=== PATIENT | female | born 1990 | race Caucasian/White ===

== ENCOUNTER 2022-10-20 19:19 | Emergency (ER) | payer BC ==
[~2022-10-20] VITALS: Ht 160 cm; Wt 63.5 kg
[2022-10-20 19:35] VITALS: BP 154/87
[2022-10-20] MEDS ORDERED: KETOROLAC TROMETHAMINE INJ 30 MG/ML VIAL ONE (19:57)
[2022-10-20] MEDS ORDERED: KETOROLAC TROMETHAMINE INJ 60 MG/2 ML VIAL IM ONE (20:00)
--- NOTE | 2022-10-20 20:09 | NUR ---
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
--- NOTE | 2022-10-21 00:01 | NUR ---
Patient discharged to home in stable condition. Written and verbal after care instructions given. Patient verbalizes understanding of instruction.
== END 2022-10-21 00:02 | disposition home or self-care (01) ==
LOC: ER 19:22
DX: M79.632 Pain in left forearm (principal); M79.651 Pain in right thigh; M79.652 Pain in left thigh; F31.9 Bipolar disorder, unspecified; Z88.8 Allergy status to other drugs, medicaments and biological substances; Z91.013 Allergy to seafood; Z60.2 Problems related to living alone
CPT/HCPCS: 99284; 96372; 73552 ×2; 73090; J1885

== ENCOUNTER 2023-12-22 05:12 | Emergency (ER) | payer BC ==
[~2023-12-22] VITALS: Ht 160 cm; Wt 68.0 kg
[2023-12-22] MEDS ORDERED: HYDROCODONE/APAP 5/325MG TABLET ONE (07:06)
[2023-12-22] MEDS: HYDROCODONE/APAP 5/325MG TABLET PO ONE (07:07)
[2023-12-22] MEDS ORDERED: HYDR-4303 PO (07:38)
[2023-12-22] MEDS ORDERED: IBUP-1955 PO (07:38)
[2023-12-22 09:41] VITALS: BP 129/83; TEMP 98.7; O2SAT 95
== END 2023-12-22 09:43 | disposition home or self-care (01) ==
LOC: ER 05:16
DX: S52.501A Unspecified fracture of the lower end of right radius, initial encounter for closed fracture (principal); F31.9 Bipolar disorder, unspecified; Z88.0 Allergy status to penicillin; Z91.013 Allergy to seafood; Z88.8 Allergy status to other drugs, medicaments and biological substances; Z60.2 Problems related to living alone; W18.30XA Fall on same level, unspecified, initial encounter; Y93.89 Activity, other specified; Y92.89 Other specified places as the place of occurrence of the external cause; Y99.8 Other external cause status
CPT/HCPCS: 73110

== ENCOUNTER 2024-02-01 19:11 | Emergency (ER) | payer BC ==
[~2024-02-01] VITALS: Ht 165.1 cm; Wt 72.6 kg
[~2024-02-01 19:11] MED LIST: HYDR-4303 PO; IBUP-1955 PO
[2024-02-01] MEDS ORDERED: oxyCODONE/APAP (5/325 MG) 1 UDTAB TABLET ONE (20:46)
[2024-02-01] MEDS: oxyCODONE/APAP (5/325 MG) 1 UDTAB TABLET PO ONE (20:47)
[2024-02-01] MEDS ORDERED: OXYC-128 PO (22:35)
[2024-02-01] MEDS ORDERED: DOCU-141 PO (22:35)
[2024-02-01 23:17] VITALS: BP 132/78; TEMP 98; O2SAT 96
== END 2024-02-01 23:51 | disposition home or self-care (01) ==
LOC: ER 19:11
DX: S52.571A Other intraarticular fracture of lower end of right radius, initial encounter for closed fracture (principal); F31.9 Bipolar disorder, unspecified; Z88.0 Allergy status to penicillin; Z88.8 Allergy status to other drugs, medicaments and biological substances; Z91.013 Allergy to seafood; Z60.2 Problems related to living alone; W18.30XA Fall on same level, unspecified, initial encounter; Y93.89 Activity, other specified; Y92.89 Other specified places as the place of occurrence of the external cause; Y99.8 Other external cause status
CPT/HCPCS: 73110

== ENCOUNTER 2024-05-05 08:35 | Emergency (ER) | payer BC ==
[~2024-05-05] VITALS: Ht 162.6 cm; Wt 72.6 kg
[~2024-05-05 08:35] MED LIST changes: +DOCU-141 PO; +OXYC-128 PO
[2024-05-05 08:56] VITALS: BP 139/62; TEMP 100.3
[2024-05-05] MEDS ORDERED: KETOROLAC TROMETHAMINE 15 MG/ML VIAL ONE ×3 (09:10→09:14)
[2024-05-05] MEDS: KETOROLAC TROMETHAMINE 15 MG/ML VIAL IV ONE (09:13)
[2024-05-05] MEDS: IV NS 0.9% 1,000 ML BAG IV ONE (09:13)
[2024-05-05] MEDS ORDERED: AZIT250T13 PO (09:46)
[2024-05-05 10:23] VITALS: O2SAT 98
== END 2024-05-05 10:23 | disposition home or self-care (01) ==
LOC: ER 08:38
DX: R50.9 Fever, unspecified (principal); M79.10 Myalgia, unspecified site; J02.9 Acute pharyngitis, unspecified; J06.9 Acute upper respiratory infection, unspecified; R19.7 Diarrhea, unspecified; F31.9 Bipolar disorder, unspecified; Z98.890 Other specified postprocedural states; Z79.1 Long term (current) use of non-steroidal anti-inflammatories (NSAID); Z20.822 Contact with and (suspected) exposure to COVID-19; Z79.899 Other long term (current) drug therapy; Z60.2 Problems related to living alone; Z88.1 Allergy status to other antibiotic agents; Z91.040 Latex allergy status
CPT/HCPCS: 99283; 96374; 96361; 87426; 87804 ×2; J7030 ×2; J1885 ×2

== ENCOUNTER 2025-02-02 08:31 | Emergency (ER) | payer SELFPAY ==
[~2025-02-02] VITALS: Ht 162.6 cm; Wt 79.4 kg
[~2025-02-02 08:31] MED LIST changes: +AZIT250T13 PO
[2025-02-02] MEDS ORDERED: NAPR-1009 PO (09:27)
[2025-02-02 09:45] VITALS: BP 125/72; TEMP 98.3; O2SAT 98
== END 2025-02-02 09:46 | disposition home or self-care (01) ==
LOC: ER 08:36
DX: S63.501A Unspecified sprain of right wrist, initial encounter (principal); S09.93XA Unspecified injury of face, initial encounter; R68.84 Jaw pain; L27.0 Generalized skin eruption due to drugs and medicaments taken internally; F31.9 Bipolar disorder, unspecified; F41.9 Anxiety disorder, unspecified; Z88.0 Allergy status to penicillin; Z88.8 Allergy status to other drugs, medicaments and biological substances; Z91.041 Radiographic dye allergy status; Z60.2 Problems related to living alone; W18.39XA Other fall on same level, initial encounter; Y93.89 Activity, other specified; Y92.89 Other specified places as the place of occurrence of the external cause; Y99.8 Other external cause status
CPT/HCPCS: 73110

== ENCOUNTER 2025-02-14 22:11 | Emergency (ER) | payer SELFPAY ==
[~2025-02-14 22:11] MED LIST changes: +NAPR-1009 PO
== END 2025-02-15 01:12 | disposition left against medical advice (07) ==
LOC: ER 22:15
DX: R10.9 Unspecified abdominal pain (principal); Z53.21 Procedure and treatment not carried out due to patient leaving prior to being seen by health care provider